=== PATIENT | male | born 1955 | race Caucasian/White ===

== ENCOUNTER 2018-06-02 18:02 | Emergency (ER) | payer OTHER ==
--- NOTE | 2018-06-02 18:20 | PDOC ---
History of Present Illness - General Chief Complaint: Respiratory Stated Complaint: COUGH Time Seen by Provider: 06/02/18 18:03 Past History - Past Medical History Allergies/Adverse Reactions: Allergies Allergy/AdvReac Type Severity Reaction Status Date / Time No Known Allergies Allergy Verified 06/02/18 18:03 Home Medications: Ambulatory Orders Escitalopram Oxalate [Lexapro -] 10 mg PO DAILY 06/02/18 Promethazine HCl/Codeine [Prometh-Codein 6.25-10 mg/5 ml] 5 - 10 ml PO TID PRN # 120 ml MDD 6 06/02/18 Tamsulosin HCl [Flomax] 0.4 mg PO DAILY 06/02/18 - Suicide/Smoking/Psychosocial Hx Smoking History: Never smoked Have you smoked in the past 12 months: No Hx Alcohol Use: No Drug/Substance Use Hx: No Substance Use Type: None *DC/Admit/Observation/Transfer Diagnosis at time of Disposition: Viral URI with cough - Discharge Dispostion Disposition: HOME Condition at time of disposition: Stable Decision to Admit order: No - Prescriptions Prescriptions: Promethazine HCl/Codeine [Prometh-Codein 6.25-10 mg/5 ml] 5 - 10 ml PO TID PRN # 120 ml MDD 6 PRN Reason: Cough - Referrals Referrals: Hari Paige [Primary Care Provider] - 2 Days - Patient Instructions Printed Discharge Instructions: DI for Viral Upper Respiratory Infection -- Adult Additional Instructions: Drink lots of fluids and get good nutrition. Acetaminophen, Advil, or Aleve for fever, pain, or body aches Cough medicine as recommended Return to ER if symptoms worsen or especially if there is chest pain or shortness of breath Otherwise follow-up with primary physician - Post Discharge Activity
[2018-06-02 18:22] VITALS: BP 117/79; PULSE 90; TEMP 100.5; BMI 25.8
== END 2018-06-02 18:30 | disposition home or self-care (01) ==
LOC: FER 18:02
DX: J06.9 Acute upper respiratory infection, unspecified (principal); B37.89 Other sites of candidiasis; R05 Cough
CPT/HCPCS: 87804; 99283-25

== ENCOUNTER 2021-08-23 21:25 | Emergency (ER) | payer OTHER ==
[2021-08-23] MEDS ORDERED: ACETAMINOPHEN 1000 MG/100 ML BAG IVPB ONE (21:34)
[2021-08-23] MEDS ORDERED: FAMOTIDINE 20 MG/50 ML IVPB 20 MG/50 ML MG IVPB ONE ×2 (21:34→21:40)
[2021-08-23] MEDS ORDERED: MAG HYDROX/AL HYDROX/SIMETH 30 ML UNIT-DOSE CUP PO ONE (21:34)
[2021-08-23] MEDS ORDERED: ONDANSETRON 4 MG/2 ML VIAL IVPUSH ONE (21:34)
[2021-08-23] MEDS ORDERED: ACETAMINOPHEN INJECTION 100 ML IVPB ONE (21:40)
[2021-08-23] MEDS ORDERED: ONDANSETRON 4 MG/2 ML VIAL ONE (21:40)
[2021-08-23] MEDS ORDERED: MAG HYDROX/AL HYDROX/SIMETH 30 ML UNIT-DOSE CUP ONE (21:41)
[2021-08-23 21:42] VITALS: TEMP 97.4; BMI 27.3
[2021-08-23 21:47] LABS: HEMATOCRIT 41.9 % (35.4-49); HEMOGLOBIN 14.9 G/dL (11.7-16.9); MCH 33.1 pg (25.7-33.7); MCHC 35.7 g/dl (32.0-35.9); MEAN CELL VOLUME 92.7 fl (80-96); MEAN PLT VOLUME 7.9 fl (7.5-11.1); PLATELET COUNT 275.9 10^3/uL (134-434); RBC 4.52 10^6/uL (4.00-5.60); RDW 15.1 % (11.9-15.9); WHITE BLOOD COUNT 5.9 10^3/uL (4.0-10.8)
[2021-08-23 21:55] LABS: INR 0.9 (0.83-1.09); PROTHROMBIN TIME (PATIENT) 10.3 SEC (9.7-13.0)
[2021-08-23 21:58] LABS: ACTIVATED PTT 28.2 SECONDS (25.2-36.5); PLATELET ESTIMATE ADEQUATE
[2021-08-23 22:02] LABS: ALBUMIN 4.5 g/dl (3.4-5.0); ALK PHOS 76 U/L (45-117); ANION GAP 10 MMOL/L (8-16); BILIRUBIN,TOTAL 0.4 mg/dl (0.2-1); CALCIUM 9.6 mg/dl (8.5-10); CHLORIDE 101 mmol/L (98-107); CO2 25 mmol/L (21-32); CREATININE 1.1 mg/dl (0.55-1.3); GLUCOSE,RANDOM 76 mg/dl (74-106); SGOT/AST 31 U/L (15-37); SGPT/ALT 30 U/L (13-61); SODIUM 136 mmol/L (136-145); TOT PROT 7.7 g/dl (6.4-8.2)
[2021-08-23 22:44] VITALS: BP 116/75; PULSE 58
[2021-08-23 23:15] LABS: LIPASE 163 U/L (73-393)
[2021-08-23 23:22] LABS: N-TERMINAL BNP 45.2 pg/ml (5-125)
== END 2021-08-23 23:45 | disposition left against medical advice (07) ==
LOC: FER 21:25
PROC: 3E0333Z Introduction of Anti-inflammatory into Peripheral Vein, Percutaneous Approach (ICD-10-PCS; principal; 2021-08-23)
PROC: 3E033GC Introduction of Other Therapeutic Substance into Peripheral Vein, Percutaneous Approach (ICD-10-PCS; 2021-08-23)
PROC: 3E033GC Introduction of Other Therapeutic Substance into Peripheral Vein, Percutaneous Approach (ICD-10-PCS; 2021-08-23)
DX: R07.9 Chest pain, unspecified (principal)
CPT/HCPCS: 36415; 71045-TC-FY; 80053; 83690; 83880; 84484; 85027; 85610; 85730; 93005; 93010; 99284-25